=== PATIENT | female | born 1965 | race African-American/Black ===

== ENCOUNTER 2024-04-24 15:03 | Emergency (ER) | payer OTHER ==
[~2024-04-24] VITALS: Ht 157.5 cm; Wt 61.2 kg
[2024-04-24 15:11] VITALS: BP_SYST 153; PULSE 119; RESP 18; TEMP 98.2; O2SAT 96
[2024-04-24] MEDS: ONDANSETRON HCL 4 MG/2 ML VIAL IVP ONE (17:01)
[2024-04-24] MEDS: MORPHINE 4 MG INJ. 4 MG/ML VIAL IVP ONE (17:03)
[2024-04-24 17:13] LABS: BASOPHILS % (AUTO) 0.2 % (0.0-2.0); HEMATOCRIT 35.5 % (36-48); HEMOGLOBIN 12.5 g/dL (12.0-16.0); LYMPHOCYTES # (AUTO) 0.3 K/uL (1.0-5.5); LYMPHOCYTES % (AUTO) 5.4 % (20.5-51.5); MEAN CORPUSCULAR HEMOGLOBIN 43 pg (27-31); MEAN CORPUSCULAR HGB CONC 35 % (32-36); MEAN CORPUSCULAR VOLUME 121 fL (79.0-98.0); MONOCYTES # (AUTO) 0.9 K/uL (0.0-1.0); MONOCYTES % (AUTO) 14.2 % (1.7-9.3); NEUTROPHILS # (AUTO) 5.2 K/uL (1.8-7.7); NEUTROPHILS % (AUTO) 80.2 % (40.0-70.0); PLATELET COUNT (AUTO) 155 K/uL (130-430); RED BLOOD CELL COUNT(AUTO) 2.93 MIL/uL (4.2-6.2); RED CELL DISTRIBUTION WIDTH 16.9 % (9.0-15.0); WHITE BLOOD COUNT (AUTO) 6.5 K/uL (4.8-10.8)
[2024-04-24 17:21] LABS: ALBUMIN 3.6 g/dL (3.4-4.8); BILIRUBIN,DIRECT 0.6 mg/dL (0.0-0.3); CALCIUM 8.8 mg/dL (8.4-11.0); CREATININE 0.87 mg/dL (0.55-1.30); POTASSIUM 3.5 mmol/L (3.5-5.1); TOTAL BILIRUBIN 1.2 mg/dL (0.0-1.0); TOTAL PROTEIN, SERUM 7.7 g/dL (6.4-8.3)
[2024-04-24 17:41] LABS: BILIRUBIN,URINE NEGATIVE (NEGATIVE); BLOOD, URINE NEGATIVE (NEGATIVE); CLARITY/URINE CLEAR (CLEAR); COLOR,URINE YELLOW (YELLOW); GLUCOSE,URINE NEGATIVE (NEGATIVE); KETONES,URINE TRACE (NEGATIVE); LEUKOCYTE ESTERASE ,URINE NEGATIVE (NEGATIVE); NITRITE, URINE NEGATIVE (NEGATIVE); PH,URINE 6.5 (5.0-8.0); PROTEIN URINE TRACE (NEGATIVE)
[2024-04-24 17:53] LABS: ANISOCYTOSIS 1+; ROULEAU 1+
[2024-04-24 18:11] LABS: BACTERIA,URINE FEW /HPF (None Seen); RBC,URINE 0-3 /HPF (0-3); WBC,URINE 0-3 /HPF (0-3)
[2024-04-24 18:12] LABS: HYALINE CASTS, URINE 0-10 /LPF (None Seen); MUCUS,URINE 2+ /LPF (None Seen)
[2024-04-24] MEDS: MAG-AL HYDROX/SIMETH 30 ML UDC PO ONE (18:45)
[2024-04-24] MEDS: DICYCLOMINE HCL 10 MG/5 ML SOLUTION PO ONE (18:45)
[2024-04-24 18:46] VITALS: BP_SYST 143; PULSE 77; RESP 14; TEMP 99; O2SAT 97
== END 2024-04-24 18:45 | disposition home or self-care (01) ==
LOC: SED 15:03
DX: R10.30 Lower abdominal pain, unspecified (principal); R11.2 Nausea with vomiting, unspecified; Z88.8 Allergy status to other drugs, medicaments and biological substances; Z85.53 Personal history of malignant neoplasm of renal pelvis
CPT/HCPCS: 99285; 74176; 96374; 96375; 80076; 80048; 81001; 83690; 85025; 87086; 36415; J2405; J2270; 81000; 81015